=== PATIENT | male | born 1955 | race Caucasian/White ===

== ENCOUNTER 2019-01-01 06:59 | Day surgery (SDC) | payer OTHER ==
[~2019-01-01] VITALS: Ht 177.8 cm; Wt 91.6 kg
[~2019-01-01 06:59] MED LIST: ALLEGRA ALLERG180 MG PO; MOTRIN IB200 MG PO; OMEPRAZOLE20 MG PO
== END 2019-01-01 09:19 | disposition home or self-care (01) ==
LOC: ORSCSDS 06:59
PROVIDERS: Internal Medicine Gastroenterology
PROC: 0DBM8ZX Excision of Descending Colon, Via Natural or Artificial Opening Endoscopic, Diagnostic (ICD-10-PCS; principal; 2019-01-01 08:30)
PROC: 0DBH8ZX Excision of Cecum, Via Natural or Artificial Opening Endoscopic, Diagnostic (ICD-10-PCS; principal; 2019-01-01 08:30)
PROC: 0DBN8ZX Excision of Sigmoid Colon, Via Natural or Artificial Opening Endoscopic, Diagnostic (ICD-10-PCS; principal; 2019-01-01 08:30)
DX: Z12.11 Encounter for screening for malignant neoplasm of colon (principal); Z86.010 Personal history of colon polyps; D12.0 Benign neoplasm of cecum; D12.4 Benign neoplasm of descending colon; D12.5 Benign neoplasm of sigmoid colon; K64.8 Other hemorrhoids; F17.210 Nicotine dependence, cigarettes, uncomplicated; Z79.899 Other long term (current) drug therapy
CPT/HCPCS: 88305; J0330; J0461; J2405; J2704; J7120

== ENCOUNTER 2021-06-22 07:19 | Day surgery (SDC) | payer OTHER ==
[~2021-06-22] VITALS: Ht 177.8 cm; Wt 94.3 kg
--- NOTE | 2021-06-22 11:25 | NUR ---
BROUGHT TO SDS FROM PACU RECIEVED PATIENT AND REPORT VSS INCISIONS LOOK GOOD
--- NOTE | 2021-06-22 12:03 | NUR ---
Discharge instructions reviewed with patient. Patient verbalizes understanding. Copy given to patient to take home. Patient States Post-Procedure ride home has been arranged. Discharged via wheelchair to private car for ride home.
== END 2021-06-22 23:20 | disposition home or self-care (01) ==
LOC: ORSCMMR 07:19 → ORD 07:30 → ORSCMMR 07:30
PROVIDERS: Surgery
PROC: 0YU64JZ Supplement Left Inguinal Region with Synthetic Substitute, Percutaneous Endoscopic Approach (ICD-10-PCS; principal; 2021-06-22 08:45)
PROC: 8E0W4CZ Robotic Assisted Procedure of Trunk Region, Percutaneous Endoscopic Approach (ICD-10-PCS; principal; 2021-06-22 08:45)
DX: K40.90 Unilateral inguinal hernia, without obstruction or gangrene, not specified as recurrent (principal); F17.210 Nicotine dependence, cigarettes, uncomplicated
CPT/HCPCS: 49650; S2900; A9270; C1781; J1100; J2270; J2405; J2704; J3010; J7120

== ENCOUNTER 2023-02-11 08:43 | Day surgery (SDC) | payer OTHER ==
[2023-02-11] VITALS (13 sets, daily range): BP systolic 91–146; BP diastolic 69–99
[~2023-02-11] VITALS: Ht 175 cm; Wt 88.8 kg
[2023-02-11] MEDS ORDERED: TRAM50 PO (09:34)
--- NOTE | 2023-02-11 09:47 | NUR ---
Ambulatory in Day Surgery. Pre-Op teaching done. Pt verbalizes understanding. Patient confirms NPO status and agrees with scheduled surgery. Patient states colon prep results light yellow. Patient States Post-Procedure ride home has been arranged.
--- NOTE | 2023-02-11 10:03 | NUR ---
02/11/23 1003 Oj Bautista HISTORY, CHART, MEDICATIONS AND ALLERGIES REVIEWED BEFORE START OF PROCEDURE. PATIENT CONFIRMS NPO STATUS AND AGREES WITH SCHEDULED PROCEDURE. 3-LEAD EKG REVIEWED WITH PHYSICIAN PRIOR TO START OF PROCEDURE. MONITOR INTACT WITH CONTINUOUS PULSE OXIMETRY,CAPNOGRAPHY, 3-LEAD EKG, INTERMITTENT BP. SUPPLEMENTAL O2 TO BE TITRATED THROUGHOUT PROCEDURE TO MAINTAIN O2 SATURATION ABOVE 90%. PATIENT DETERMINED TO BE ASA APPROPRIATE FOR PROPOFOL SEDATION PRIOR TO START OF PROCEDURE BY
--- NOTE | 2023-02-11 10:48 | NUR ---
Discharge instructions reviewed with patient. Patient verbalizes understanding. Copy given to patient to take home. Patient States Post-Procedure ride home has been arranged. Pt declinded WC, ambulated without assiatance, steady gait.
== END 2023-02-11 10:45 | disposition home or self-care (01) ==
LOC: ORSCMMR 08:43 → ORD 10:00 → ORSCMMR 10:45
PROVIDERS: Internal Medicine Gastroenterology
PROC: 0DBL8ZX Excision of Transverse Colon, Via Natural or Artificial Opening Endoscopic, Diagnostic (ICD-10-PCS; principal; 2023-02-11 10:00)
DX: Z12.11 Encounter for screening for malignant neoplasm of colon (principal); Z86.010 Personal history of colon polyps; K63.5 Polyp of colon
CPT/HCPCS: 88305; J2704

== ENCOUNTER 2024-06-16 10:17 | Day surgery (SDC) | payer OTHER ==
[~2024-06-16] VITALS: Ht 175.3 cm; Wt 93.4 kg
[~2024-06-16 10:17] MED LIST changes: +Balanced Salt Epinephrine Irrigation Solution 500 mL IR SCH; +Lidocaine HCl/Pf 1% 5 ML VIAL XX SCH; +Moxifloxacin HCL 0.5 MG/0.1 ML 0.4MLSYR RIGHTEYE SCH; +NS 500 ML IV ONE; +PHENYLEPHRINE\\TROPICAMIDE\\TETRACAINE OPHTHALMIC DILATING SOLN RIGHTEYE PRN; +Povidone-Iodine 450 DROP/30 ML Solution ONE; +Povidone-Iodine 450 DROP/30 ML Solution RIGHTEYE SCH; +TRAM50 PO; +Tetracaine HCl/Pf 0.5% Opth Soln 4 ml ONE; +VITAMIN D31000 UNI1 PO; +Vitamin B Comple1 EA PO; +ZINC15 PO
[2024-06-16] MEDS ORDERED: NS 1,000 ML IV ONE (10:51)
--- NOTE | 2024-06-16 10:57 | NUR ---
06/16/24 1057 DORON RYAN DISCHARGE EDUCATION INTITIATED AND PT EDUCATED ON WHAT TO EXPECT, ALL QUESTIONS ANSWERED. CALL LIGHT IN REACH, GURNEY RAILS UP AND BED IN LOW POSITION.
[2024-06-16] MEDS ORDERED: Midazolam HCl 1MG / ML 2ML Vial ONE (11:20)
[2024-06-16] MEDS ORDERED: FentaNYL Citrate 50 MCG/ML 2 ML Injection ONE (11:31)
[2024-06-16 11:43] VITALS: BP 114/93
== END 2024-06-16 11:56 | disposition home or self-care (01) ==
LOC: ORSCSDS 10:17
PROVIDERS: Student in an Organized Health Care Education/Training Program
PROC: 08RJ3JZ Replacement of Right Lens with Synthetic Substitute, Percutaneous Approach (ICD-10-PCS; principal; 2024-06-16 11:30)
DX: H25.813 Combined forms of age-related cataract, bilateral (principal); H35.89 Other specified retinal disorders; F17.210 Nicotine dependence, cigarettes, uncomplicated
CPT/HCPCS: J2250; J3010; J7040; V2632

== ENCOUNTER 2024-06-22 11:26 | Day surgery (SDC) | payer OTHER ==
[~2024-06-22] VITALS: Ht 177.8 cm; Wt 94.1 kg
[~2024-06-22 11:26] MED LIST changes: +Diazepam 5 MG Tab PO PRN; +Diazepam 5 MG Tab PO SCH; +Moxifloxacin HCL 0.5 MG/0.1 ML 0.4MLSYR LEFTEYE SCH; -Moxifloxacin HCL 0.5 MG/0.1 ML 0.4MLSYR RIGHTEYE SCH; -NS 500 ML IV ONE; +Ondansetron 4 MG SoluTab MM PRN; +PHENYLEPHRINE\\TROPICAMIDE\\TETRACAINE OPHTHALMIC DILATING SOLN LEFTEYE PRN; -PHENYLEPHRINE\\TROPICAMIDE\\TETRACAINE OPHTHALMIC DILATING SOLN RIGHTEYE PRN; +Povidone-Iodine 450 DROP/30 ML Solution LEFTEYE SCH; -Povidone-Iodine 450 DROP/30 ML Solution RIGHTEYE SCH
[2024-06-22] MEDS ORDERED: Diazepam 5 MG Tab ONE (12:06)
--- NOTE | 2024-06-22 12:17 | NUR ---
06/22/24 1217 Letha Vyas CALL LIGHT WITHIN REACH. TETRACAINE IN 1215 PLEGRIS IN AT 1217
--- NOTE | 2024-06-22 13:01 | NUR ---
06/22/24 1301 Tiffanie Heller BP-117/86 [id number]
[2024-06-22 13:08] VITALS: BP 128/83
--- NOTE | 2024-06-22 13:09 | NUR ---
06/22/24 9939 Ileana Driscoll PT ARRIVES TO SDU A&O X4, DENIES PAIN/NAUSEA, VSS, ON RA.
== END 2024-06-22 13:21 | disposition home or self-care (01) ==
LOC: ORSCSDS 11:26
PROVIDERS: Student in an Organized Health Care Education/Training Program
PROC: 08RK3JZ Replacement of Left Lens with Synthetic Substitute, Percutaneous Approach (ICD-10-PCS; principal; 2024-06-22 13:00)
DX: H25.812 Combined forms of age-related cataract, left eye (principal); Z96.1 Presence of intraocular lens; H35.89 Other specified retinal disorders; F17.210 Nicotine dependence, cigarettes, uncomplicated; Z79.899 Other long term (current) drug therapy
CPT/HCPCS: A9270; V2632